=== PATIENT | male | born 1965 | race Caucasian/White ===

== ENCOUNTER → 2016-09-30 | Outpatient (CLI) | payer BC ==
--- NOTE | 2016-09-30 12:01 | ECHOS ---
DATE OF SERVICE: 09/30/2016 AGE: 51Y SEX: M HT: 74" WT: 245 lbs. Protocol Stephen: X Others: Stress Echo Stage: III Dur. of Exercise: 9 minutes *Heart Rate Blood Pressure *Rest: 71 Rest: 132/53 * *Max. Achieved: 155 Maximum BP: 213/92 85% PMHR: 143 100% PMHR: 168 *METS: 10 INDICATIONS: Dyspnea. MEDICATIONS: Aleve, potassium. Resting ECG shows sinus rhythm, rate of 71 beats per minute, MD interval 0.16, QRS 0.08, normal ST-T waves. Utilizing a standard Stephen protocol, a symptom-limited treadmill test was performed. Patient exercised for total of 9 minutes, attained a peak heart rate 155 beats per minute, which is approximately 92% predicted maximum heart rate without any chest pain or pressure or ST segment deviations indicative of ischemia. Exercise test was terminated because of fatigue and shortness of breath. Baseline images show normal thickening and contractility. Postexercise images show improved contractility and thickening in all segments consistent with normal stress echocardiogram. [employer] IMPRESSION: 1. Normal stress echocardiogram at 92% predicted maximum heart rate. 2. Patient has slightly below average level of cardiopulmonary fitness as indicated by VO2 max and METs. Patient attained peak metabolic activity equivalent to 10 METs. 3. Patient did not report any symptoms throughout the study.
== END | disposition home or self-care (01) ==
LOC: RADNMMAIN 09:46
PROVIDERS: ATTEND Family Medicine
DX: R06.09 Other forms of dyspnea (principal)
CPT/HCPCS: 93017; 93350

== ENCOUNTER → 2017-09-13 | Outpatient (CLI) | payer BC ==
--- NOTE | 2017-09-13 12:54 | US ---
EXAMINATION TYPE: US thyroid st tissue head/neck DATE OF EXAM: 09/13/2017 COMPARISON: NONE CLINICAL HISTORY: R22.1 SWELLING,MASS,LUMP. palpable area right side of neck x 3 months. Scanned right side of neck directly over palpable, there is a 4.1 x 1.5 x 2.9 cm soft tissue mass ana rosa t is slightly hyperechoic with internal linear septa, most consistent with lipoma. IMPRESSION: 4.1 cm mass corresponding to palpable with sonographic features most consistent with a l ipoma.
== END ==
LOC: RADUSWWP 12:22
PROVIDERS: ATTEND Family Medicine
DX: R22.1 Localized swelling, mass and lump, neck (principal)
CPT/HCPCS: 76536